=== PATIENT | male | born 1955 | race Caucasian/White ===

== ENCOUNTER → 2020-08-30 13:45 | Outpatient (CLI) | payer OTHER, SELFPAY ==
--- NOTE | ~2020-08-30 | US_ITS ---
EXAMINATION: US carotid duplex BI DATE: 08/30/2020 14:16 INDICATION: Occlusion and stenosis of unspecified carotid artery. TECHNIQUE: Grayscale, color Doppler, and pulsed Doppler images of the cervical carotid arteries were obtained. The degree of vessel stenosis is placed in one of the following categories: normal, <50%, 5 0-69%, >=70% but less than near-occlusion, near-occlusion, or total occlusion. Note that percent sten osis relative to normal distal artery lumen diameter is indirectly measured from velocity measurement s as described by Navdeep, et al. Radiology 2003; 229:340-346. COMPARISON: None. FINDINGS: RIGHT: The right common carotid artery (CCA) peak systolic velocity (PSV) is 87 cm/s. The right internal car otid artery (ICA) PSV is 80 cm/s. The right ICA end-diastolic velocity (EDV) is 22 cm/s. The right IC A/CCA PSV ratio is 1.1. Grayscale and color Doppler images yield an estimate of <50% diameter reducti on from plaque in the ICA. There is antegrade flow in the right vertebral artery. LEFT: The left CCA PSV is 106 cm/s. The left ICA PSV is 61 cm/s. The left ICA EDV is 26 cm/s. The left ICA/ CCA PSV ratio is 1.0. Grayscale and color Doppler images yield an estimate of <50% diameter reduction from plaque in the ICA. There is antegrade flow in the left vertebral artery. IMPRESSION: 1. <50% stenosis in the right internal carotid artery. 2. <50% stenosis in the left internal carotid artery. Reviewed, dictated and finalized at location A.
== END ==
PROVIDERS: PCP Nurse Practitioner; Visit Provider Nurse Practitioner
DX: I65.23 Occlusion and stenosis of bilateral carotid arteries (principal)
CPT/HCPCS: 93880

== ENCOUNTER → 2022-01-22 12:22 | Outpatient (CLI) | payer OTHER, SELFPAY ==
--- NOTE | ~2022-01-22 | MR_ITS ---
EXAMINATION: MR brain/brain stem wo con DATE: 01/22/2022 12:56 INDICATION: Parkinson's disease. TECHNIQUE: Magnetic resonance imaging (MRI) of the brain and brainstem was performed without intraven ous contrast. COMPARISON: Head CT 07/23/2014 FINDINGS: There is no intracranial hemorrhage, acute infarction, or abnormal intracranial mass lesion . There are scattered areas of nonspecific increased T2-weighted signal intensity in the cerebral whi te matter. There is chronic encephalomalacia in right temporal lobe. The ventricles are normal in siz e. There is an old blowout fracture of medial wall of right orbit. The paranasal sinuses are clear. T he mastoid air cells are normal. IMPRESSION: 1. Chronic encephalomalacia in right temporal lobe, likely secondary to traumatic brain injury seen o n 07/23/14. 2. Moderate nonspecific cerebral white matter disease, which likely represents chronic small vessel i schemic disease. Reviewed, dictated and finalized at location A. IMPRESSION: 1. Chronic encephalomalacia in right temporal lobe, likely secondary to traumat ic brain injury seen on 07/23/14. 2. Moderate nonspecific cerebral white matter disease, which likely represents chronic small vessel ischemic disease.
== END ==
DX: G20 Parkinson's disease (principal); R93.0 Abnormal findings on diagnostic imaging of skull and head, not elsewhere classified
CPT/HCPCS: 70551

== ENCOUNTER 2023-05-24 11:42 | Emergency (ER) | payer BC, SELFPAY ==
--- NOTE | 2023-05-24 11:56 | ED.GENADULT ---
HPI - General Adult General Chief complaint: Eye Problems Stated complaint: eye irritationa Source: patient, RN notes reviewed and old records reviewed Mode of arrival: ambulatory Limitations: no limitations History of Present Illness HPI narrative: 68-year-old male patient presents to [facility] with complaint of redness and swelling and irritation left eye. Patient states was poked in eye approximately 9 days ago states as well that for about 3 days and then improved and then yesterday started swelling again. MD complaint: eye swelling Onset (ago): day(s) (9) Related Data Home Medications Medication Instructions Recorded Confirmed duloxetine 60 mg capsule,delayed 60 mg PO DAILY 08/27/20 05/24/23 release carbidopa 37.5 mg-levodopa 150 1 tablet PO TID 03/23/22 05/24/23 mg-entacapone 200 mg tablet atorvastatin 10 mg tablet (Lipitor) 20 mg PO QHS 03/17/23 05/24/23 mirtazapine 15 mg tablet 7.5 mg PO HS 03/17/23 05/24/23 Allergies Allergy/AdvReac Type Severity Reaction Status Date / Time codeine Allergy Mild STOMACH Verified 05/24/23 11:59 SPASMS Sulfa (Sulfonamide Allergy Mild REACTION Verified 05/24/23 11:59 Antibiotics) UNKNOWN-GIVEN A CHILD Review of Systems Constitutional: Constitutional: Reports no additional constitutional complaints, Denies body ache(s), Denies chills, Denies fatigue, Denies fever(s) and Denies headache(s) Eyes: Eyes: Reports no additional eye complaints, Denies blurry vision, Denies exophthalmos, Denies change in vision, Denies diplopia, Denies eye discharge, Reports irritation and Denies loss of vision Comments: Left upper lid red and swell ENT: Reports system reviewed and no additional complaints, except as documented, Denies vertigo, Denies dizziness, Denies ear discharge, Denies otalgia, Denies facial pain, Denies headache(s), Denies nasal congestion, Denies nasal discharge, Denies sinus pain, Denies sinus pressure and Denies sore throat Cardiovascular: Cardiovascular: Reports no additional cardiovascular complaints, Denies chest pain, Denies chest pain at rest, Denies rapid heart rate and Denies dyspnea Respiratory: Respiratory: Reports no additional respiratory complaints, Denies chest congestion, Denies cough, Denies pain on inspiration, Denies pain with cough and Denies dyspnea Gastrointestinal: Gastrointestinal: Denies abdominal pain, Denies diarrhea, Denies nausea and Denies vomiting Integumentary/Breasts: Skin/Breast: Denies rash Neurologic: Reports system reviewed and no additional complaints, except as documented, Denies vertigo, Denies dizziness and Denies headache(s) Endocrine: Endocrine: Denies fatigue [facility] Past Medical History Medical History Anxiety disorder Hyperlipidemia Parkinson disease Surgical History Surgical History Hx of repair of right rotator cuff 2019 S/P medial meniscus repair of left knee Family History Family History Father Alcoholism Asthma Cancer Diabetes mellitus Hypertension Mother Hypertension Cerebrovascular accident Social History Social History Smoking status: Never smoker Second hand tobacco smoke exposure: No Alcohol intake: current Drinks per week: 3 Alcohol use details: Social Substance use: never Substance use type: does not use Lack of Transportation: No Lack of Food: Never True Current Housing: I Have Housing Concerned About Future Housing: No Difficulty Paying Gas/Electric Bills: No Difficulty Paying for Meds: No Currently Unemployed: No Education: High School Diploma/GED Difficulty w/ Childcare or Family Care: No Living arrangements: with family Occupation/Education: occupation Additional occupation/education comments: self
[2023-05-24 11:58] VITALS: BP 143/76; PULSE 82; RESP 18; TEMP 36.3; O2SAT 100
== END 2023-05-24 12:15 | disposition home or self-care (01) ==
PROVIDERS: Emergency Provider Registered Nurse; PCP Family Medicine
DX: H05.012 Cellulitis of left orbit (principal); E78.5 Hyperlipidemia, unspecified; G20.A1 Parkinson's disease without dyskinesia, without mention of fluctuations
CPT/HCPCS: 99213; G0463

== ENCOUNTER 2023-08-02 14:15 | Emergency (ER) | payer MEDICARE, SELFPAY ==
[2023-08-02 14:51] VITALS: BP 124/74; PULSE 105; RESP 18; TEMP 36.4; O2SAT 98
--- NOTE | 2023-08-02 15:04 | ED.UPPEXIN ---
HPI - Extremity Injury (Upper) General Chief Complaint: Extremity Injury, Upper Stated Complaint: rt elbow irritation Time Seen by Provider: 08/02/23 15:04 Source: patient Mode of arrival: ambulatory Limitations: no limitations History of Present Illness HPI narrative: 68 yo M presents with c/o pain to L upper arm with redness and warmth for approx. 3 days. Symptoms getting progressively worse. afebrile. Has been working outside, thought he maybe got insect bite. All systems reviewed and negative except as noted above. Related Data Home Medications Medication Instructions Recorded Confirmed duloxetine 60 mg capsule,delayed 60 mg PO DAILY 08/27/20 08/02/23 release carbidopa 37.5 mg-levodopa 150 1 tablet PO TID 03/23/22 08/02/23 mg-entacapone 200 mg tablet atorvastatin 10 mg tablet (Lipitor) 20 mg PO QHS 03/17/23 08/02/23 mirtazapine 15 mg tablet 7.5 mg PO HS 03/17/23 08/02/23 Allergies Allergy/AdvReac Type Severity Reaction Status Date / Time codeine AdvReac Mild STOMACH Verified 08/02/23 14:54 SPASMS Sulfa (Sulfonamide AdvReac Mild REACTION Verified 08/02/23 14:54 Antibiotics) UNKNOWN-GIVEN A CHILD Review of Systems Review of Systems: CONSTITUTIONAL: Denies fever, chills, or sweats. EYES: Denies visual changes, redness, or discharge. ENT: Denies rhinorrhea, congestion, sore throat, or otalgia. CARDIOVASCULAR: Denies chest pain, palpitations, or edema. RESPIRATORY: Denies cough or dyspnea. GASTROINTESTINAL: Denies abdominal pain, nausea, vomiting, or diarrhea. GENITOURINARY: Denies dysuria or hematuria. SKIN: Reports redness warmth and tenderness to left upper extremity. MUSCULOSKELETAL: Denies back pain, joint pain, or myalgia. NEUROLOGIC: Denies headache, numbness, or weakness. PSYCHIATRIC: Denies anxiety or depression. All other systems reviewed are negative, except as documented in HPI. REPLACED BY [facility] Past Medical History Medical History Anxiety disorder Hyperlipidemia Parkinson disease Surgical History Surgical History Hx of repair of right rotator cuff 2019 S/P medial meniscus repair of left knee Family History Family History Father Alcoholism Asthma Cancer Diabetes mellitus Hypertension Mother Hypertension Cerebrovascular accident Social History Social History Smoking status: Never smoker Second hand tobacco smoke exposure: No Alcohol intake: current Drinks per week: 3 Alcohol use details: Social Substance use: never Substance use type: does not use Lack of Transportation: No Lack of Food: Never True Current Housing: I Have Housing Concerned About Future Housing: No Difficulty Paying Gas/Electric Bills: No Difficulty Paying for Meds: No Currently Unemployed: No Education: High School Diploma/GED Difficulty w/ Childcare or Family Care: No Living arrangements: with family Occupation/Education: occupation Additional occupation/education comments: self employed Gender identity (if verbalized by the patient): Male Sexual Orientation (if Verbalized by the Patient): Straight or Heterosexual Comments At time of signature, agree with nursing past medical, surgical, social and family history. There is no relevant family history pertinent to the presenting complaint. Exam Narrative: GENERAL: This is a well-nourished, well-developed patient, in no apparent distress. HEAD: normocephalic, atraumatic. EYES: PERRL. Sclera clear/white. Vision is grossly intact. EARS: External ears normal NOSE: External nose normal . NECK: Neck supple, non-tender without lymphadenopathy, masses or thyromegaly. CARDIOVASCULAR: Regular rate and rhythm without murmurs, gallops, or rubs. RESPIRATORY: Clear to auscultatio
== END 2023-08-02 15:13 | disposition home or self-care (01) ==
PROVIDERS: Emergency Provider Nurse Practitioner Family; PCP Family Medicine
DX: S50.862A Insect bite (nonvenomous) of left forearm, initial encounter (principal); L08.9 Local infection of the skin and subcutaneous tissue, unspecified; W57.XXXA Bitten or stung by nonvenomous insect and other nonvenomous arthropods, initial encounter; E78.5 Hyperlipidemia, unspecified; G20.A1 Parkinson's disease without dyskinesia, without mention of fluctuations
CPT/HCPCS: 99213; G0463

== ENCOUNTER 2023-10-14 14:38 | Outpatient (CLI) | payer MEDICARE, SELFPAY ==
--- NOTE | 2023-10-14 14:54 | ECHO_ITS ---
Patient Info Name: Rupert Solo Age: 68 years : 1955 Gender: Male Ht: 71 in Wt: 160 lbs BSA: 1.91 m2 HR: 72 bpm BP: 150 / 102 mmHg Technical Quality: Fair Exam Date: 10/14/2023 2:59 PM Exam Location: Echo Lab Patient Status: Outpatient Admit Date: 10/14/2023 Staff Ordering Physician: Charles Subramanian DO Service Desk Associate: Estevan Espinal RDCS Attending Provider: Charles Subramanian DO Referring Physician: Moris MCKEON; Exam Type: CA echo dop color flow w con Study Info Indications R53.83 - Other fatigue Complete two-dimensional, color flow and Doppler transthoracic echocardiogram is performed. Summary 1. Complete two-dimensional, color flow and Doppler transthoracic echocardiogram is performed. 2. Left ventricular chamber dimension is normal. 3. Left ventricular systolic function is normal, estimated at 60-65%. 4. The left ventricular diastolic function is grade I diastolic dysfunction. 5. E/e' 7 is not elevated. 6. There is mild mitral valve regurgitation. 7. There is mild tricuspid valve regurgitation. 8. No pulmonary hypertension, estimated pulmonary arterial systolic pressure is 28 mmHg. 9. There is trace pulmonic regurgitation. Left Ventricle E/e' 7 is not elevated. Left ventricular chamber dimension is normal. Left ventricular systolic function is normal, estimated at 60-65%. The left ventricular diastolic function is grade I diastolic dysfunction. Right Ventricle Right ventricular systolic function is normal and with normal TAPSE 2.1 cm. Right ventricular chamber dimension is normal. Left Atria Left atrial chamber dimension is normal. Right Atria Right atrial chamber dimension is normal. Aortic Valve The aortic valve is trileaflet. There is no aortic valve stenosis. There is no aortic valve regurgitation. Pulmonic Valve There is trace pulmonic regurgitation. Mitral Valve There is no mitral valve stenosis. There is mild mitral valve regurgitation. Tricuspid Valve There is mild tricuspid valve regurgitation. No pulmonary hypertension, estimated pulmonary arterial systolic pressure is 28 mmHg. Pericardium/Pleural There is no pericardial effusion. Inferior Vena Cava Normal inferior vena cava with >50% collapse upon inspiration consistent with normal right atrial pressure, 5 mmHg. Aorta The aortic root size at the sinus of Valsalva is normal. Left Ventricular Outflow Tract Name Value Normal LVOT 2D LVOT Diameter 2.03 cm LVOT Doppler LVOT Peak Gradient 3 mmHg LVOT Mean Gradient 1 mmHg LVOT VTI 15.57 cm LVOT VTI/AV VTI Ratio 0.92 LVOT Stroke Volume 50.42 ml LVOT CO 3.84 l/min LVOT CI 2.02 L/min/m2 Pulmonic Valve Name Value Normal RVOT Doppler RVOT Peak Gradient 2 mmHg PV Doppler -------
== END 2023-10-14 14:39 | disposition home or self-care (01) ==
PROVIDERS: PCP Family Medicine; Visit Provider Internal Medicine Cardiovascular Disease
DX: R53.83 Other fatigue (principal); I34.0 Nonrheumatic mitral (valve) insufficiency; I36.1 Nonrheumatic tricuspid (valve) insufficiency
CPT/HCPCS: 93306

== ENCOUNTER 2023-11-10 09:33 | Outpatient (CLI) | payer MEDICARE, SELFPAY ==
--- NOTE | 2023-11-10 09:49 | EST_ITS ---
Patient Info Name: Rupert Solo Age: 68 years : 1955 Gender: Male Ht: 71 in Wt: 160 lbs BSA: 1.91 m2 HR: 73 bpm BP: 139 / 90 mmHg Heart Rhythm: Sinus Rhythm Exam Date: 11/10/2023 9:59 AM Exam Location: Echo Lab Patient Status: Outpatient Admit Date: 11/10/2023 Staff Ordering Physician: Charles Subramanian DO Attending Provider: Charles Subramanian DO Exercise Technologist: Vero Rosario CT Exercise Physician: Charles Subramanian DO Exam Type: CA stress test treadmill Study Info Indications R06.09 - Other forms of dyspnea A treadmill exercise stress test was performed. Summary 1. 1. Negative Dewey exercise stress test for ischemic ST changes by ECG criteria. 2. 2. Reduced functional capacity, achieving 7 METs of workload. 3. 3. Appropriate HR response to exercise. 4. 4. Appropriate HR recovery at 1 minute post exercise. 5. 5. No imaging with stress testing. 6. 6. Patient informed of the above results. Protocol: Dewey Stress ECG Details Stage: REST Duration (min): 10 min : 44 sec Speed (mph): 0.0 Grade (%): 0 HR (bpm): 86 SBP (mmHg): 139 DBP (mmHg): 90 METS: --- Stage: REST Duration (min): 10 min : 56 sec Speed (mph): 0.0 Grade (%): 0 HR (bpm): 83 SBP (mmHg): 139 DBP (mmHg): 90 METS: --- Stage: STAGE 1 Duration (min): 1 min : 0 sec Speed (mph): 1.7 Grade (%): 10 HR (bpm): 107 SBP (mmHg): 139 DBP (mmHg): 90 METS: --- Stage: STAGE 1 Duration (min): 2 min : 0 sec Speed (mph): 1.7 Grade (%): 10 HR (bpm): 121 SBP (mmHg): 139 DBP (mmHg): 90 METS: --- Stage: STAGE 1 Duration (min): 3 min : 0 sec Speed (mph): 1.7 Grade (%): 10 HR (bpm): 127 SBP (mmHg): 176 DBP (mmHg): 89 METS: --- Stage: STAGE 2 Duration (min): 1 min : 0 sec Speed (mph): 2.5 Grade (%): 12 HR (bpm): 136 SBP (mmHg): 176 DBP (mmHg): 89 METS: --- Stage: STAGE 2 Duration (min): 2 min : 0 sec Speed (mph): 2.5 Grade (%): 12 HR (bpm): 145 SBP (mmHg): 175 DBP (mmHg): 85 METS: --- Stage: STAGE 2 Duration (min): 2 min : 0 sec Speed (mph): 2.5 Grade (%): 12 HR (bpm): 145 SBP (mmHg): 175 DBP (mmHg): 85 METS: --- Stage: RECOVERY Duration (min): 0 min : 59 sec Speed (mph): 0.0 Grade (%): 0 HR (bpm): 132 SBP (mmHg): 175 DBP (mmHg): 85 METS: --- Stage: RECOVERY Duration (min): 1 min : 59 sec Speed (mph): 0.0 Grade (%): 0 HR (bpm): 113 SBP (mmHg): 175 DBP (mmHg): 85 METS: --- Stage: RECOVERY Duration (min): 2 min : 57 sec Speed (mph): 0.0 Grade (%): 0 HR (bpm): 100 SBP (mmHg): 172 DBP (mmHg): 90 METS: --- Rest HR: 83 bpm Peak HR: 146 bpm Rest Sys BP: 139 mmHg Peak Sys BP: 176 mmHg Max Pred HR: 153 bpm % Max Pred HR: 95 % Target HR: 130 bpm Max RPP: 25,696 bpm*mmHg Cordoba Score: -9 Termination Reason: Reached target heart rate or workload Cardiac Symptoms: Shortness of breath Max ST Seg Deviation: -2.80 mm Total Time: 5 min : 0 sec Rest D
== END 2023-11-10 09:34 | disposition home or self-care (01) ==
LOC: ANHCARD 09:34
PROVIDERS: PCP Family Medicine; Visit Provider Internal Medicine Cardiovascular Disease
DX: R06.09 Other forms of dyspnea (principal)
CPT/HCPCS: 93017

== ENCOUNTER 2024-03-19 10:07 | Emergency (ER) | payer OTHER, SELFPAY ==
[2024-03-19 10:14] VITALS: BP 151/80; PULSE 81; RESP 18; TEMP 36.7; O2SAT 98
--- NOTE | 2024-03-19 10:29 | ED.EYEPROB ---
HPI - Eye Problem General Chief complaint: Eye Problems Stated complaint: RT Eye Pain Time Seen by Provider: 03/19/24 10:29 Source: patient Mode of arrival: ambulatory Limitations: no limitations History of Present Illness HPI Narrative: 68 yo M presents with stye to R eye. Has had them in the past. Stated 5 days ago but was out of town and not able to be seen. Has been apply warm compress. c/o pain and swelling. all systems reviewed and negative except as noted above. Related Data Home Medications Medication Instructions Recorded Confirmed carbidopa 37.5 mg-levodopa 150 1 tablet PO TID 03/23/22 03/19/24 mg-entacapone 200 mg tablet duloxetine 60 mg capsule,delayed 90 mg PO DAILY 09/21/23 03/19/24 release Allergies Allergy/AdvReac Type Severity Reaction Status Date / Time codeine AdvReac Mild STOMACH Verified 03/19/24 10:15 SPASMS Sulfa (Sulfonamide AdvReac Mild REACTION Verified 03/19/24 10:15 Antibiotics) UNKNOWN-GIVEN A CHILD Review of Systems Review of Systems: CONSTITUTIONAL: Denies fever, chills, or sweats. EYES: Denies visual changes, redness, or discharge. Reports sty to right upper eyelid. ENT: Denies rhinorrhea, congestion, sore throat, or otalgia. CARDIOVASCULAR: Denies chest pain, palpitations, or edema. RESPIRATORY: Denies cough or dyspnea. GASTROINTESTINAL: Denies abdominal pain, nausea, vomiting, or diarrhea. GENITOURINARY: Denies dysuria or hematuria. SKIN: Denies rash or itching. MUSCULOSKELETAL: Denies back pain, joint pain, or myalgia. NEUROLOGIC: Denies headache, numbness, or weakness. PSYCHIATRIC: Denies anxiety or depression. All other systems reviewed are negative, except as documented in HPI. [facility] Past Medical History Medical History Anxiety disorder Hyperlipidemia Parkinson disease Surgical History Surgical History Hx of repair of right rotator cuff 2019 S/P medial meniscus repair of left knee Family History Family History Father Alcoholism Asthma Cancer Diabetes mellitus Hypertension Mother Hypertension Cerebrovascular accident Social History Social History Smoking status: Never smoker Second hand tobacco smoke exposure: No Alcohol intake: current Drinks per week: 3 Alcohol use details: Social Substance use: never Substance use type: does not use Lack of Transportation: No Lack of Food: Never True Current Housing: I Have Housing Concerned About Future Housing: No Difficulty Paying Gas/Electric Bills: No Difficulty Paying for Meds: No Currently Unemployed: No Education: High School Diploma/GED Difficulty w/ Childcare or Family Care: No Living arrangements: with family Occupation/Education: occupation Additional occupation/education comments: self employed Gender identity (if verbalized by the patient): Male Sexual Orientation (if Verbalized by the Patient): Straight or Heterosexual Comments At time of signature, agree with nursing past medical, surgical, social and family history. There is no relevant family history pertinent to the presenting complaint. Exam Narrative: GENERAL: This is a well-nourished, well-developed patient, in no apparent distress. HEAD: normocephalic, atraumatic. EYES: PERRL. Sclera clear/white. Vision is grossly intact. internal pustule noted to R upper eyelid with erythema and swollen, tender lump noted to external eyelid EARS: External ears normal NOSE: External nose normal NECK: Neck supple, non-tender without lymphadenopathy, masses or thyromegaly. CARDIOVASCULAR: Regular rate and rhythm without murmurs, gallops, or rubs. RESPIRATORY: Clear to auscultation. Breath sounds equal bilaterally. No wheezes, rales, or rhonchi. SKIN: warm, Dry, intact with no suspicious lesions or rash, good texture and turgor. NEURO: awake, alert, and oriented to person, place and time. There were no obvious focal neurologic abnormalities. EXTREMITIES: No joint tenderness, effusion, or edema noted. Course Course Level of Care: Express Care Visit Vital Signs Vital signs: Vital Signs Temperature 36.7 C 03/19/24 10:14 Pulse Rate 81 03/19/24 10:14 Respiratory Rate 18 03/19/24 10:14 Blood Pressure 151/80 H 03/19/24 10:14 Pulse Oximetry 98 03/19/24 10:14 Oxygen Delivery Room Air 03/19/24 10:14 Temperature 36.7 C 03/19/24 10:14 Pulse Rate 81 03/19/24 10:14 Respiratory Rate 18 03/19/24 10:14 Blood Pressure 151/80 H 03/19/24 10:14 Pulse Oximetry 98 03/19/24 10:14 Oxygen Delivery Room Air 03/19/24 10:14 Reviewed MDM - Eye Problem MDM Narrative Medical decision making narrative: Patient is aware of diagnosis, understands and agrees to treatment plan. Anticipatory guidance given. Patient agrees to follow-up as directed and is aware of reasons to seek care at the emergency department. Portions of this record may have been created with voice recognition software will treat. I with erythromycin ointment, warm compresses and massage. Recommend follow up with integration specialist if not improving. Patient has no complaints of vision changes at this time. Discharge Plan Discharge Clinical Impression: Hordeolum internum of right upper eyelid Patient Disposition: Home, Self-Care Condition: Stable Instructions: Antibiotic Form, Erythromycin (Into the eye), Stye (ED) Additional Instructions: Place antibiotic as prescribed. Wash hands before and after placing eye ointment. Read over discharge instructions on how to place erythromycin ointment. Apply a warm compress 4 times a day and gently massage for 10 minutes. Follow-up with an integration specialist if not improving. Prescriptions: New erythromycin 5 mg/gram (0.5 %) ointment 1 applic RIGHT EYE QID 10 Days Qty: 3.5 0RF No Action duloxetine 60 mg capsule,delayed release(DR/EC) 90 mg PO DAILY Patient Comments: Ordered and refilled by psychiatrist in [place] [id number] 37.5-150-200 mg tablet 1 tablet PO TID atorvastatin 10 mg tablet See Rx Instructions .ROUTE .COMPLEX Qty: 90 1RF Dose Instruction: 10 MG ORALLY DAILY Rx Instructions: 10 MG ORALLY DAILY cholecalciferol (vitamin D3) 1,250 mcg (50,000 unit) capsule See Rx Instructions .ROUTE .COMPLEX Qty: 12 2RF Dose Instruction: 1250 MCG ORALLY WEEKLY Rx Instructions: 1250 MCG ORALLY WEEKLY Follow-up/Referrals: Joel Hamilton MD [Primary Care Provider] - Time of Disposition: 10:32
== END 2024-03-19 10:35 | disposition home or self-care (01) ==
PROVIDERS: Emergency Provider Nurse Practitioner Family; PCP Family Medicine
DX: H00.021 Hordeolum internum right upper eyelid (principal); G20.A1 Parkinson's disease without dyskinesia, without mention of fluctuations; E78.5 Hyperlipidemia, unspecified
CPT/HCPCS: 99213; G0463